=== PATIENT | female | born 2000 | race African-American/Black ===

== ENCOUNTER 2020-04-18 15:50 | Observation (INO) | payer MEDICAID ==
[2020-04-18] MEDS ORDERED: PREN-96 (16:37)
== END 2020-04-18 16:47 | disposition home or self-care (01) | DRG 566 ==
LOC: LDRP 15:50
PROVIDERS: ADMIT Obstetrics & Gynecology; ATTEND Obstetrics & Gynecology
DX: O26.853 Spotting complicating pregnancy, third trimester (principal); Z3A.28 28 weeks gestation of pregnancy
CPT/HCPCS: 59025; 81002; G0378

== ENCOUNTER 2025-05-20 19:38 | Emergency (ER) | payer MEDICAID ==
[~2025-05-20] VITALS: Ht 167.6 cm; Wt 104.5 kg
[~2025-05-20 19:38] MED LIST: PREN-96
[2025-05-20] MEDS: ALBUTEROL SULF 2.5 MG/0.5ML(0.5%) NEB SOLN NEB ONE (20:47)
[2025-05-20] MEDS: IPRATROPIUM BROM 0.5 MG/2.5ML INH SOL NEB ONE (20:49)
--- NOTE | 2025-05-20 20:50 | ED.PDOC ---
SOB-HPI HPI Comments 24 year old female who came to ER for asthmatic attacks. Patient does have a history of asthma, states for the past week, has been having intermittent episodes of chest tightness, dry nonproductive cough, shortness a breath and wheezing. Self-medicated inhalers and nebulizers but offered no relief. Denies any fever or chills Chief Complaint: Asthma Time Seen by MD: 20:49 Reviewed notes: Nurses Notes Information Source: Patient Mode of Arrival: Ambulatory Severity: Moderate Timing: Days Duration: Intermittent Context: At Rest PE Risk Factors: None History of: Asthma Prehospital treatment: Breathing Tx Associated Signs and Symptoms: Wheeze, Cough, Chest Pain Quality: Tightness Radiation: No Radiation Location: Chest (R), Chest (L) If cough with SOB: Non-Productive Review of Systems REVIEW OF SYSTEMS: No fever, no chills, or fatigue HEENT: No sore throat, no earache, no congestion, no neck pain. Cardiac: (+) chest pain. No palpitations. Lungs: (+) shortness of breath, (+) cough. GI: No nausea, no vomiting, no diarrhea, no constipation, no abdominal pain : No dysuria, frequency, or urgency. No hematuria. Musculoskeletal: No joint pain , no joint swelling, no extremity edema. Skin: No rash, no itching. Neuro: No headache, no dizziness, no weakness Vital Signs Vital Signs Date Time Temp Pulse Resp B/P (MAP) Pulse Ox O2 Delivery O2 Flow Rate FiO2 05/20/25 21:50 98.2 85 17 111/74 (86) 94 98.2 05/20/25 21:50 Room Air 05/20/25 20:49 0 21 Physical Exam General: Awake, alert and oriented. No acute distress. Skin: Skin in warm, dry and intact. Appropriate color for ethnicity. Nailbeds pink with no cyanosis. HEENT: The head is normocephalic and atraumatic. Conjunctivae are clear without exudates or hemorrhage. Sclera is non-icteric. EOM are intact. No signs of nystagmus. Eyelids are normal in appearance without swelling or lesions. Oral mucosa is pink and moist Neck: The neck is supple with normal range of motion. No JVD. Cardiac: Heart rate and rhythm are normal. No murmurs, gallops, or rubs are auscultated. Respiratory: No signs of respiratory distress. Bilateral wheezes Abdominal: Abdomen is soft, non-tender without distention. Extremities: Upper and lower extremities are atraumatic in appearance without deformity or edema. Neurological: The patient is awake, alert and oriented to person, place, and time with normal speech. Speech is clear. There is no facial asymmetry. Psychiatric: Appropriate mood and affect. Good judgement and insight. No visual or auditory hallucinations. 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 Was a procedure done?: No Differential Dx Differential Diagnosis: Asthma, Bronchitis, Pneumonia, Respiratory Distress X-Ray, Labs, Meds, VS Vital Signs Date Time Temp Pulse Resp B/P (MAP) Pulse Ox O2 Delivery O2 Flow Rate FiO2 05/20/25 21:50 98.2 85 17 111/74 (86) 94 98.2 05/20/25 21:50 83 18 95 Room Air 05/20/25 21:20 97.8 118 18 122/78 (93) 98 97.8 05/20/25 20:49 20 98 Room Air* 0 21 Time of 1ST Reevaluation: 20:47 Reevaluation 1ST: Unchanged Patient Education/Counseling: Prognosis, Need For Follow Up Family Education/Counseling: No Family Present SEPSIS Sepsis Screen Physician Orders Chest Xray 1 View (05/20/25 20:29) Vital Signs Date Time Temp Pulse Resp B/P (MAP) Pulse Ox O2 Delivery O2 Flow Rate FiO2 05/20/25 21:50 98.2 85 17 111/74 (86) 94 98.2 05/20/25 21:50 83 18 95 Room Air 05/20/25 21:20 97.8 118 18 122/78 (93) 98 97.8 05/20/25 20:49 20 98 Room Air* 0 21 Departure 1 Departure Time of Disposition: 21:37 Impression: Primary Impression: Asthma exacerbation Disposition: 01 HOME / SELF CARE / HOMELESS Condition: Stable Additional Instructions: ED DISCHARGE INSTRUCTIONS Instructions: Please read all instructions provided in this packet carefully. Use ipratropium/albuterol nebulizer as needed for severe wheezing/shortness of breath You may also use your normal rescue inhaler and albuterol nebulizer as needed for wheezing/shortness of breath If you are still very short of breath after 2 treatments return to the emergency department Take prednisone daily for the next 4 days starting tomorrow Although you have been discharged from the Emergency Department, this does not mean that you have a "clean bill of health". No definitive diagnosis for your symptoms has been made today. It is possible that you are in the process of developing a serious illness. This is why you must return to the ED without fail if any new or worsening symptoms (especially if your symptoms include chest pain, trouble breathing, abdominal pain, fever, headache, confusion, trouble seeing, or trouble walking) It is also very important that you see a primary care provider (PCP) within the next 3-5 days to follow up. If you are unable to get an appointment, return to the ED for re-evaluation. SHORTNESS OF BREATH EDUCATION Shortness of breath has many causes. Sometimes conditions such as anxiety can lead to shortness of breath. Some people get mild shortness of breath when they exercise. Trouble breathing also can be a symptom of a serious problem, such as asthma, lung disease, emphysema, heart problems, and pneumonia. If your shortness of breath continues, you may need tests and treatment. Watch for any changes in your breathing and other symptoms. Follow-up care is a erazo part of your treatment and safety. Be sure to make and go to all appointments, and call your doctor if you are having problems. It's also a good idea to know your test results and keep a list of the medicines you take. How can you care for yourself at home? Do not smoke or allow others to smoke around you. If you need help quitting, talk to your doctor about stop-smoking programs and medicines. These can increase your chances of quitting for good. Get plenty of rest and sleep. Take your medicines exactly as prescribed. Call your doctor if you think you are having a problem with your medicine. Find healthy ways to deal with stress. Exercise daily. Get plenty of sleep. Eat regularly and well. When should you call for help? Call 911 anytime you think you may need emergency care. For example, call if: You have severe shortness of breath. You have symptoms of a heart attack. These may include: Chest pain or pressure, or a strange feeling in the chest. Sweating. Shortness of breath. Nausea or vomiting. Pain, pressure, or a strange feeling in the back, neck, jaw, or upper belly or in one or both shoulders or arms. Lightheadedness or sudden weakness. A fast or irregular heartbeat. After you call 911, the rail doweling machine operator may tell you to chew 1 adult-strength or 2 to 4 low-dose aspirin. Wait for an ambulance. Do not try to drive yourself. Call your doctor now or seek immediate medical care if: Your shortness of breath gets worse or you start to wheeze. Wheezing is a high-p itched sound when you breathe. You wake up at night out of breath or have to prop your head up on several pillows to breathe. You are short of breath after only light activity or while at rest. Watch closely for changes in your health, and be sure to contact your doctor if: You do not get better over the next 1 to 2 days. Credits for Shortness of Breath: Care Instructions Current as of: June 10, 2024 Author: [employer] e-Prescriptions Prednisone (Prednisone) 20 Mg Tab 20 MG PO DAILY for 4 Days, #4 MG Prov: MIMI KELLEY MD 05/20/25 Ipratropium-Albuterol (Ipratropium [place]/Albut) 1 Yunier Yunier 1 YUNIER IN QIDP for 4 Days, #20 DOSE Prov: MIMI KELLEY MD 05/20/25 Comments 24-year-old female with asthma exacerbation. Patient is well-appearing, nontoxic. Patient's symptoms improved during the ED observation. Vital signs within normal limits. Chest x-ray shows no acute process. Patient is felt stable for discharge home. Patient advised to follow up with primary care provider promptly and return to the emergency department with any new, worsening or concerning symptoms. I reviewed the following notes from the pt's past medical encounters: N/A The following tests were ordered, and results were reviewed by me: (See diagnostic results section) The following test were independently interpreted by me: N/A Additional information was gathered from interviewing the following independent historians: N/A I reviewed and agreed with the following test results read by other providers: Chest x-ray I discussed treatments and results with patient Decision regarding hospitalization or escalation of hospital level of care: Risks and benefits of admission for further treatment of patient's condition was considered however due to patient's stable condition patient will be discharged to follow up closely or return to care for worsening of condition or inability to follow up. Critical Care Note Critical Care Time?: No Stability Stability form required: No Heart Score Heart Score: Heart Score Response (Comments) Value History N/A 0 EKG N/A 0 Age N/A 0 Risk Factors N/A 0 Troponin N/A 0 Total 0 I personally scribed for MIMI KELLEY MD ([email or web address]) on 05/20/25 at 20:50. Electronically submitted by Jean Paul Rojas ([facility]). MIMI KELLEY MD May 20, 2025 20:50
--- NOTE | 2025-05-20 21:07 | DVH ---
CHEST RADIOGRAPH Indication: Shortness of breath, wheezing, cough Technique: Single frontal view of the chest was obtained COMPARISON: None FINDINGS: Lines and Tubes: None Lungs: Clear Pleura: No effusion. No pneumothorax. Cardiomediastinal contours: Unremarkable Bones: Unremarkable IMPRESSION: 1. No acute disease.
[2025-05-20] MEDS ORDERED: IPRA0.00 IN (21:39)
[2025-05-20] MEDS ORDERED: PRED20TA2 PO (21:39)
[2025-05-20 21:50] VITALS: BP 111/74; PULSE 83; RESP 18; TEMP 98.2; O2SAT 95
== END 2025-05-20 21:54 | disposition home or self-care (01) ==
LOC: ER 19:38
DX: J45.901 Unspecified asthma with (acute) exacerbation (principal); Z98.890 Other specified postprocedural states
CPT/HCPCS: 71045; 94640; 96372; 99283; J1100

== ENCOUNTER 2025-06-04 05:01 | Emergency (ER) | payer MEDICAID ==
[~2025-06-04] VITALS: Ht 167.6 cm; Wt 108.9 kg
[~2025-06-04 05:01] MED LIST changes: +IPRA0.00 IN; +PRED20TA2 PO
[2025-06-04 05:10] VITALS: BP 134/81; TEMP 98.7
[2025-06-04] MEDS: IPRATROPIUM BROM 0.5 MG/2.5ML INH SOL NEB ONE (05:21)
[2025-06-04] MEDS: ALBUTEROL SULF 2.5 MG/0.5ML(0.5%) NEB SOLN NEB ONE (05:21)
[2025-06-04] MEDS: PROMETHAZINE-DM 5 ML ORAL SYRUP PO ONE (05:36)
[2025-06-04] MEDS: methylPREDNISolone SOD SUCC 125 MG/2 ML VL IM ONE (05:36)
[2025-06-04] MEDS ORDERED: AZIT-43 PO (05:41)
[2025-06-04] MEDS ORDERED: PROM1SOL4 PO (05:41)
--- NOTE | 2025-06-04 05:46 | ED.PDOC ---
SOB-HPI HPI Comments PATIENT C/O AN ASTHMA EXCERBATION AND DRY COUGH X2 WEEKS. AUDIBLE EXPIRATORY WHEEZING NOTED. DENIES LABELED WITH THE BREATHING, CHEST PAIN, SHORTNESS OF BREATH, FEVER, CHILLS, NAUSEA OR VOMITING. 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 Family History Family History: Reviewed,noncontributory to illness Social History Smoker: Non-Smoker Alcohol: Denies ETOH Use Drugs: Denies Drug Use Lives In: Home Constitutional: denies: chills, diaphoresis, fatigue, fever, malaise, sweats, weakness, others EENTM: denies: blurred vision, double vision, ear bleeding, ear discharge, ear drainage, ear pain, ear ringing, eye pain, eye redness, hearing loss, mouth pain, mouth swelling, nasal discharge, nose bleeding, nose congestion, nose pain, photophobia, tearing, throat pain, throat swelling, voice changes, others Respiratory: reports: cough, wheezing; denies: hemoptysis, orthopnea, SOB at rest, shortness of breath, SOB with excertion, stridor, others Cardiovascular: denies: chest pain, dizzy spells, diaphoresis, Dyspnea on exertion, edema, irregular heart beat, left arm pain, lightheadedness, palpitations, PND, syncope, others Gastrointestinal: denies: abdomen distended, abdominal pain, blood streaked bowels, constipated, diarrhea, dysphagia, difficulty swallowing, hematemesis, melena, nausea, poor appetite, poor fluid intake, rectal bleeding, rectal pain, vomiting, others Genitourinary: denies: abnormal vagina bleeding, burning, dyspareunia, dysuria, flank pain, frequency, hematuria, incontinence, pain, , vagina discharge, urgency, others Neurological: denies: dizziness, fainting, headache, left sided numbness, left sided weakness, numbness, paresthesia, pre-existing deficit, right sided numbness, right sided weakness, seizure, speech problems, tingling, tremors, weakness, others Musculoskeletal: denies: back pain, gout, joint pain, joint swelling, muscle pain, muscle stiffness, neck pain, others Integumetry: denies: bruises, change in color, change in hair/nails, dryness, laceration, lesions, lumps, rash, wounds, others Allergic/Immunocompromised: denies: Difficulty Healing, Frequent Infections, Hives, Itching, others Hematologic/Lymphatic: denies: anemia, blood clots, easy bleeding, easy bruising, swollen glands, others Endocrine: denies: excessive hunger, excessive sweating, excessive thirst, excessive urination, flushing, intolerance to cold, intolerance to heat, unexplained weight gain, unexplained weight loss, others Psychiatric: denies: anxiety, bipolar disorder, depression, hopeless, panic disorder, schizophrenia, sleepless, suicidal, others Physical Exam General Appearance: No Apparent Distress, Normal HEENT: Normal ENT Inspection, Pharynx Normal, TMs Normal Neck: Full Range of Motion Respiratory: Chest Non-Tender, No Accessory Muscle Use, No Respiratory Distr ess, Wheezing (Aminah and expiratory) Cardiovascular: No Edema, No JVD, No Murmur, No Gallop, Normal Peripheral Pulses, Regular Rate/Rhythm Breast Exam: Deferred Gastrointestinal: No Organomegaly, Non Tender, No Pulsatile Mass, Normal Bowel Sounds, Soft Genitalia: Deferred Pelvic: Deferred Rectal: Deferred Extremities: Normal range of motion, No pedal edema Musculoskeletal : Apperance: Normal Neurologic: Alert, No Motor Deficits, Normal Affect, Normal Mood, No Sensory Deficits Cerebellar Function: Normal Reflexes: Normal Skin: Dry, Normal Color, Warm Lymphatic: No Adenopathy Was a procedure done? Was a procedure done?: No Differential Dx Differential Diagnosis: Asthma, Bronchitis, Pneumonia, Allergic Rhinitis, URI X-Ray, Labs, Meds, VS Vital Signs Date Time Temp Pulse Resp B/P (MAP) Pulse Ox O2 Delivery O2 Flow Rate FiO2 06/04/25 05:22 16 95 Room Air* 0 21 06/04/25 05:10 98.7 101 22 134/81 (98) 94 98.7 Current Medications Medications (Trade) Dose Ordered Sig/Eugenio Route Start Time Stop Time Status Last Admin Albuterol (Ventolin Medneb) 5 mg ONCE ONCE NEB 06/04/25 05:15 06/04/25 05:16 DC 06/04/25 05:21 Ipratropium [place] (Atrovent Medneb) 0.5 mg ONCE ONCE NEB 06/04/25 05:15 06/04/25 05:16 DC 06/04/25 05:21 Methylprednisolone Sodium Succinate (Solu Medrol) 125 mg ONCE ONCE IM 06/04/25 05:15 06/04/25 05:16 DC 06/04/25 05:36 Promethazine HCl/ Dextromethorphan (Phenergan-Dm) 5 ml ONCE ONCE PO 06/04/25 05:15 06/04/25 05:16 DC 06/04/25 05:36 X-Ray, Labs, Meds, VS Comment Given duo rodney x1 reports improvement requesting discharge at this time LUNG SOUNDS CLEAR AND EQUAL BILATERAL. Also given Solu-Medrol 125 mg IM and promethazine DM. We will script trial azithromycin and promethazine/DM. Advised to rest increase p.o. fluids with electrolytes. Advised her to find a PCP do a follow up within three days. Patient was also advised on ER return precautions indicates understanding and agrees with discharge plan of care Time of 1ST Reevaluation: 04:58 Reevaluation 1ST: Unchanged Time of 2ND Reevaluation: 05:42 Reevaluation 2ND: Improved Patient Education/Counseling: Diagnosis, Treatment, Prognosis, Need For Follow Up Family Education/Counseling: Diagnosis, Treatment, Prognosis, Need For Follow Up SEPSIS Sepsis Screen Date sepsis recognized/suspect: Jun 04, 2025 Time Sepsis recognized/suspect: 512 Recent Procedure: No On Antibiotic Therapy: No Respiratory Rate >20: Yes Heart Rate >90: Yes Temp<36 C (96.8 F) or >38.3 C: No SBP <90 or MAP <65 mmHG: No New Acute Mental Status Change: No Is the patient on CPAP, BIPAP,: No Physician Orders Med Neb Initial Treatment (06/04/25 05:10) Vital Signs Date Time Temp Pulse Resp B/P (MAP) Pulse Ox O2 Delivery O2 Flow Rate FiO2 06/04/25 05:22 16 95 Room Air* 0 21 06/04/25 05:10 98.7 101 22 134/81 (98) 94 98.7 Medications Medications Dose Ordered Sig/Eugenio Route Start Time Stop Time Status Last Admin Dose Admin Albuterol 5 mg ONCE ONCE NEB 06/04/25 05:15 06/04/25 05:16 DC 06/04/25 05:21 Ipratropium [place] 0.5 mg ONCE ONCE NEB 06/04/25 05:15 06/04/25 05:16 DC 06/04/25 05:21 Methylprednisolone Sodium Succinate 125 mg ONCE ONCE IM 06/04/25 05:15 06/04/25 05:16 DC 06/04/25 05:36 Promethazine HCl/ Dextromethorphan 5 ml ONCE ONCE PO 06/04/25 05:15 06/04/25 05:16 DC 06/04/25 05:36 Departure 1 Departure Time of Disposition: 05:45 Impression: Primary Impression: Asthma exacerbation Qualified Codes: J45.41 - Moderate persistent asthma with (acute) exacerbation Disposition: HOME / SELF CARE / HOMELESS Condition: Stable e-Prescriptions Promethazine-Dm (Promethazine Dm 6.25-15 mg/5Ml) 1 Krystal Krystal 5 ML PO TID PRN for 5 Days, #75 ML Prov: JAD JIMENEZ 06/04/25 Azithromycin (Azithromycin) 250 Mg Tab 250 MG PO DAILY MDD 500 for 5 Days, #6 TAB 2 TABLETS ORALLY ON DAY ONE, THEN 1 TABLET ORALLY DAILY FOR 4 DAYS Prov: JAD JIMENEZ 06/04/25 Discharged With: Significant Other Critical Care Note Critical Care Time?: No Stability Stability form required: No Heart Score Heart Score: Heart Score Response (Comments) Value History N/A 0 EKG N/A 0 Age <45 0 Risk Factors N/A 0 Troponin N/A 0 Total 0 JAD JIMENEZ Jun 04, 2025 05:46
[2025-06-04 05:55] VITALS: PULSE 93; RESP 16; O2SAT 98
== END 2025-06-04 05:56 | disposition home or self-care (01) ==
LOC: ER 05:01
DX: J45.901 Unspecified asthma with (acute) exacerbation (principal); Z98.890 Other specified postprocedural states
CPT/HCPCS: 94640; 96372; 99283; J2919

== ENCOUNTER 2025-06-27 12:50 | Emergency (ER) | payer MEDICAID ==
[~2025-06-27] VITALS: Ht 167.6 cm; Wt 113.5 kg
[2025-06-27] MEDS: IPRATROPIUM BROM 0.5 MG/2.5ML INH SOL NEB ONE ×2 (13:47→14:24)
[2025-06-27] MEDS: ALBUTEROL SULF 2.5 MG/0.5ML(0.5%) NEB SOLN NEB ONE ×2 (13:48→14:24)
[2025-06-27] MEDS: BUDESONIDE (INHALATION) 0.5 MG/2 ML NEB NEB ONE (14:24)
[2025-06-27 14:28] VITALS: BP 125/71; PULSE 82; RESP 18; TEMP 98.1; O2SAT 95
[2025-06-27] MEDS ORDERED: METH4PAK PO (15:26)
[2025-06-27] MEDS ORDERED: CICL80AE2 IN (15:26)
[2025-06-27] MEDS ORDERED: ALBU108A5 IN (15:26)
--- NOTE | 2025-06-27 15:27 | ED.PDOC ---
SOB-HPI HPI Comments 24-year-old female currently six weeks presents for an asthma exa cerbation. She has been experiencing worsening asthma symptoms over the past few nights partly when laying down or trying asleep Symptoms including difficulty catching her breath and wheezing She has been using her nebulizer with temporary improvement She also mentions she has a clear productive cough but has not been taking any [id number] medications due to her Denies any nighttime awakenings. 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 Hx Family History Family History: Reviewed,noncontributory to illness Social History Smoker: Non-Smoker Alcohol: Denies ETOH Use Drugs: Denies Drug Use Lives In: Home All Other Systems: Reviewed and Negative (PER HPI) Physical Exam General Appearance: No Apparent Distress, Normal HEENT: Normal ENT Inspection, Pharynx Normal, TMs Normal Neck: Full Range of Motion, Non-Tender, Normal, Normal Inspection Respiratory: Chest Non-Tender, No Accessory Muscle Use, No Respiratory Dist ress, Wheezing Cardiovascular: No Murmur, No Gallop, Regular Rate/Rhythm Breast Exam: Deferred Gastrointestinal: No Organomegaly, Non Tender, No Pulsatile Mass, Normal Bowel Sounds, Soft Genitalia: Deferred Pelvic: Deferred Rectal: Deferred Extremities: No calf tenderness, Normal capillary refill, Normal inspection, Normal range of motion, Non-tender, No pedal edema Musculoskeletal : Apperance: Normal Neurologic: Alert, 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 Was a procedure done?: No Differential Dx Differential Diagnosis: Asthma, Bronchitis, Sinusitis, Allergic Rhinitis, URI X-Ray, Labs, Meds, VS Vital Signs Date Time Temp Pulse Resp B/P (MAP) Pulse Ox O2 Delivery O2 Flow Rate FiO2 06/27/25 14:28 98.1 82 18 125/71 (89) 95 98.1 06/27/25 14:28 82 18 95 Room Air 06/27/25 14:24 17 97 Room Air* 0 21 06/27/25 13:47 17 94 Room Air* 0 21 06/27/25 12:52 98.1 82 18 125/71 95 98.1 Current Medications Medications (Trade) Dose Ordered Sig/Eugenio Route Start Time Stop Time Status Last Admin Albuterol (Ventolin Medneb) 5 mg ONCE ONCE NEB 06/27/25 13:30 06/27/25 13:31 DC 06/27/25 13:48 Ipratropium [place] (Atrovent Medneb) 0.5 mg ONCE ONCE NEB 06/27/25 13:30 06/27/25 13:31 DC 06/27/25 13:47 Budesonide (Pulmicort) 0.5 mg ONCE ONCE NEB 06/27/25 14:15 06/27/25 14:16 DC 06/27/25 14:24 Dexamethasone Sodium Phosphate (Decadron Injection) 16 mg ONCE ONCE IM 06/27/25 14:15 06/27/25 14:16 DC 06/27/25 14:26 Albuterol (Ventolin Medneb) 5 mg ONCE ONCE NEB 06/27/25 14:15 06/27/25 14:16 DC 06/27/25 14:24 Ipratropium [place] (Atrovent Medneb) 0.5 mg ONCE ONCE NEB 06/27/25 14:15 06/27/25 14:16 DC 06/27/25 14:24 X-Ray, Labs, Meds, VS Comment Patient presents with cough and expiratory wheezing No accessory muscles no nasal flaring Exacerbation likely in the setting of weather Unclear cause of the asthma exacerbation. Differentials considered but not limited to: PNA, bronchiolitis, Foreign body airway obstruction, GERD. 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 While in the ED, the patient was treated with Multiple rounds of Albuterol and Atrovent, Dexamethasone, Pulmicort On reevaluation symptoms improved with treatment in the ED. Vital signs and exam reassuring. Lungs clear no wheezing. No labored breathing. No signs of respiratory distress. Patient was prescribed a short course of steroids. Inhaler prescribed as needed. Strict return precautions were discussed. Follow up with PCP 2-3 days On reevaluation, patient had symptomatic improvement. Patient is stable for discharge at this time. External notes reviewed. Test results and diagnostic imaging interpreted. All diagnostic findings, discharge care, education and instructions provided Follow-up with PCP in 2 to 3 days Patient verbalized understanding and agreed to treatment plan Vital signs stable, afebrile, no acute distress noted Patient ambulatory with strong steady gait Advised to return precautions for any new or worsening symptoms, return to ER immediately for re-evaluation Patient is aware that the purpose of this visit was for an acute medical emergency requiring emergent stabilization. Chronic conditions, including malignancies have not been ruled out. Patient is instructed to follow up with PCP as directed and discharge instructions for continued care and workup. If unable to arrange follow-up, patient is to return to the emergency department for reassessment. Patient (parent or legal guardian if applicable) was given verbal and written discharge instructions and acknowledges understanding. Time of 1ST Reevaluation: 15:00 Reevaluation 1ST: Improved Patient Education/Counseling: Diagnosis, Treatment Family Education/Counseling: Diagnosis, Treatment SEPSIS Sepsis Screen Date sepsis recognized/suspect: Jun 27, 2025 Time Sepsis recognized/suspect: 4 Recent Procedure: No On Antibiotic Therapy: No Respiratory Rate >20: No Heart Rate >90: No Temp<36 C (96.8 F) or >38.3 C: No SBP <90 or MAP <65 mmHG: No New Acute Mental Status Change: No Is the patient on CPAP, BIPAP,: No Vital Signs Date Time Temp Pulse Resp B/P (MAP) Pulse Ox O2 Delivery O2 Flow Rate FiO2 06/27/25 14:28 98.1 82 18 125/71 (89) 95 98.1 06/27/25 14:28 82 18 95 Room Air 06/27/25 14:24 17 97 Room Air* 0 21 06/27/25 13:47 17 94 Room Air* 0 21 06/27/25 12:52 98.1 82 18 125/71 95 98.1 Departure 1 Departure Time of Disposition: 15:27 Impression: Primary Impression: Acute asthma Disposition: HOME / SELF CARE / HOMELESS Condition: Stable Additional Instructions: Discharge Note: Continue on your medications. Drink plenty of fluids. Follow up with your primary Dr. Take your prescriptions as ordered. If your condition becomes worse call and follow up with your primary DrMaikol for instructions or return to the ER if needed. Thank you for visiting [facility]. e-Prescriptions Methylprednisolone (Medrol Dosepak) 4 Mg [place] 4 MG PO UD, #21 TAB 0 Refills [facility] Prov: LESLIE ROBISON NP 06/27/25 Albuterol Sulfate (Albuterol Sulfate Hfa) 108 Mcg/Act Aer 108 MCG IN Q6HP PRN for 10 Days, #1 AER 0 Refills Prov: LESLIE ROBISON NP 06/27/25 Ciclesonide ([place]) 80 Mcg/Act Aer 80 MCG IN BID for 30 Days, #1 AER 0 Refills Prov: LESLIE ROBISON NP 06/27/25 Discharged With: Self Critical Care Note Critical Care Time?: No Stability Stability form required: No Heart Score Heart Score: Heart Score Response (Comments) Value History N/A 0 EKG N/A 0 Age N/A 0 Risk Factors N/A 0 Troponin N/A 0 Total 0 LESLIE ROBISON NP Jun 27, 2025 15:27
== END 2025-06-27 15:36 | disposition home or self-care (01) ==
LOC: ER 12:50
DX: O99.511 Diseases of the respiratory system complicating pregnancy, first trimester (principal); J45.901 Unspecified asthma with (acute) exacerbation; Z3A.01 Less than 8 weeks gestation of pregnancy
CPT/HCPCS: 94640; 96372; 99284; J1100